=== PATIENT | female | born 1970 | race Asian ===

== ENCOUNTER 2023-04-17 10:03 | Emergency (ER) | payer BC ==
[2023-04-17 10:29] VITALS: BP 130/84; PULSE 98; RESP 18; TEMP 98.6; BMI 18.3
[2023-04-17 10:35] LABS: HCG,QUALITATIVE URINE Negative
[2023-04-17 10:45] LABS: EPITHELIAL CELLS 0-5 /hpf
== END 2023-04-17 12:52 | disposition home or self-care (01) ==
LOC: FER 10:03
DX: R31.9 Hematuria, unspecified (principal); R30.0 Dysuria; M54.9 Dorsalgia, unspecified; N10 Acute pyelonephritis
CPT/HCPCS: 74176-TC; 81003; 81015; 84703; 87086